=== PATIENT | female | born 1945 | race Caucasian/White ===

== ENCOUNTER 2018-10-24 12:42 | Emergency (ER) | payer OTHER ==
[~2018-10-24] VITALS: Ht 172.7 cm; Wt 90.7 kg
[~2018-10-24 12:42] MED LIST: CEFADROXIL500 MG PO; COZAAR100 MG; KETO10TA2 PO; NORVASC2.5 M1; PRINIVIL20 MG; SYNTHROID50 MCG; TOPROL XL25 M1; TRIPLE ANTIBIOT15 GM TP
== END 2018-10-24 19:32 | disposition home or self-care (01) ==
LOC: ER 12:42
DX: K29.60 Other gastritis without bleeding (principal); R10.13 Epigastric pain

== ENCOUNTER 2024-07-11 11:10 | Emergency (ER) | payer OTHER ==
[~2024-07-11] VITALS: Ht 152.4 cm; Wt 78.0 kg
[~2024-07-11 11:10] MED LIST changes: +ADULT LOW DOSE81 M1 PO; +AMLODIPINE-OLM1 EAC2 PO; +ANTIVERT25 M2 PO; +CILOSTAZOL100 MG PO; +LASIX20 MG PO; +LISINOPRIL30 MG PO; +MAXIMUM D3325 MCG PO; +PENTOXIFYLLINE400 MG PO; +SIMVASTATIN10 MG PO; +TIROSINT50 MCG PO; +TOPROL XL25 M1 PO
[2024-07-11] MEDS ORDERED: KETOROLAC TROMETHAMINE 60 MG VIAL IM STA (14:26)
[2024-07-11] MEDS ORDERED: IBU600 MG PO (18:22)
== END 2024-07-11 20:29 | disposition home or self-care (01) ==
LOC: ER 11:10
DX: M25.551 Pain in right hip (principal); I10 Essential (primary) hypertension
CPT/HCPCS: 73502; 96372; 99283; J1885

== ENCOUNTER 2025-03-27 23:01 | Emergency (ER) | payer OTHER ==
[~2025-03-27] VITALS: Ht 167.6 cm; Wt 70.3 kg
[~2025-03-27 23:01] MED LIST changes: +IBU600 MG PO
[2025-03-27 23:10] VITALS: BP 145/83; O2SAT 100
[2025-03-28] MEDS ORDERED: KETOROLAC TROMETHAMINE 60 MG VIAL IM STA (00:04)
[2025-03-28] MEDS ORDERED: TRIAMCINOLONE ACETONIDE 40 MG/ML VIAL IM STA (00:04)
[2025-03-28] MEDS ORDERED: TRIAMCINOLONE ACETONIDE 40 MG/ML VIAL ONE (00:05)
[2025-03-28] MEDS ORDERED: KETOROLAC TROMETHAMINE 60 MG VIAL IM ONE (00:05)
[2025-03-28] MEDS ORDERED: MELOXICAM15 MG PO (02:15)
== END 2025-03-28 02:31 ==
LOC: ER 23:01
DX: M25.551 Pain in right hip (principal); M25.561 Pain in right knee; I10 Essential (primary) hypertension; E03.9 Hypothyroidism, unspecified
CPT/HCPCS: 73502; 73560; 96372; 99284; J1885; J3301

== ENCOUNTER 2025-05-01 01:36 | Inpatient (IN) | payer OTHER ==
[~2025-05-01] VITALS: Ht 172.7 cm; Wt 59.0 kg
[~2025-05-01 01:36] MED LIST changes: +MELOXICAM15 MG PO
[2025-05-01 03:54] LABS: BASO % 0.1 % (0.1-1.2); EOS # 0.02 (0.04-0.54); EOS % 0.1 % (0.7-7.0); LYMPH # 0.78 (1.18-3.74); LYMPH % 4.2 % (19.3-53.1); MEAN PLATELET VOLUME 10.90 fl (9.4-12.4); MONO # 1.71 (0.24-0.82); MONO % 9.2 % (4.7-12.5); NEUT # 15.90 (1.56-6.13); NEUT % 85.8 % (34.0-71.1); RED CELL DISTRIBUTION WIDTH 14.6 % (11.6-14.4)
[2025-05-01 03:58] LABS: ERYTHROCYTE SEDIMENTATION RATE 62 mm/hr (0-30)
[2025-05-01 04:10] LABS: INR 0.99
[2025-05-01 04:21] LABS: ALT/SGPT 133.0 U/L (12-78); AST/SGOT 123.0 U/L (15-37); BILIRUBIN TOTAL 1.32 mg/dL (0.3-1.2); BUN CREA RATIO 16.0 (7.0-25.0); CREATININE SERUM 1.05 mg/dL (0.55-1.02); GFR 50.82; GLOBULINA 4.4 G/DL (2.4-3.5); GLUCOSE FASTING 130.0 mg/dL (65-100); OSMOLALITY SERUM 286.0 MOSM/KG (275-295)
[2025-05-01 04:27] LABS: COVID-19 AG NEGATIVE (NEGATIVE)
[2025-05-01] MEDS ORDERED: ONDANSETRON HCL 2 MG/ML VIAL IV STA (05:01)
[2025-05-01] MEDS ORDERED: FAMOTIDINE/PF 20 MG/2 ML VIAL IV STA (05:01)
[2025-05-01] MEDS ORDERED: 0.9 % SODIUM CHLORIDE 1,000 ML IV STA (05:01)
[2025-05-01] MEDS ORDERED: PIPERACILLIN/TAZOBACTAM SODIUM 3.375 GM VIAL IV ONE ×3 (05:12→16:35)
[2025-05-01 05:56] LABS: URINE APPEARANCE Cloudy; URINE BILIRRUBIN Negative (NEGATIVE); URINE BLOOD Large; URINE COLOR Yellow; URINE GLUCOSE Negative (NEGATIVE); URINE KETONE Trace (NEGATIVE); URINE LEUKOCYTE Large; URINE NITRATE Positive; URINE PROTEIN 30 (NEGATIVE); URINE UROBILINOGEN 0.2 E.U./dl
[2025-05-01 06:00] LABS: URINE CAST 2.83 uL (0.0-1.40); URINE EPITHELIAL CELLS 24.6 uL (0.0-38.8); URINE RBC 57.3 uL (0.0-20.8)
[2025-05-01] MEDS ORDERED: PIPERACILLIN/TAZOBACTAM SODIUM 3.375 GM in 0.9 % SODIUM CHLORIDE 100 ML IV SCH ×2 (06:00→15:16)
[2025-05-01 06:48] LABS: URINE BACTERIA > 9821.5 uL (0.0-1933)
[2025-05-01 06:49] LABS: URINE CRYSTALS FEW /HPF
[2025-05-01] MEDS ORDERED: ONDANSETRON HCL 2 MG/ML VIAL ONE (07:17)
[2025-05-01] MEDS ORDERED: FAMOTIDINE/PF 20 MG/2 ML VIAL ONE (07:17)
[2025-05-01] MEDS ORDERED: LEVALBUTEROL HCL 1.25 MG/3 ML SOLUTION IH SCH (09:23)
[2025-05-01] MEDS ORDERED: LEVALBUTEROL HCL 1.25 MG/3 ML SOLUTION IH ONE (11:13)
[2025-05-01] MEDS ORDERED: ACETAMINOPHEN 500 MG GEL..CAP PO SCH (15:17)
[2025-05-01] MEDS ORDERED: AMLODIPINE BESYLATE 5 MG TABLET PO SCH (15:17)
[2025-05-01] MEDS ORDERED: LISINOPRIL 10 MG TABLET PO SCH (15:18)
[2025-05-01] MEDS ORDERED: METOPROLOL SUCCINATE 25 MG TAB.SR.24H PO SCH (15:18)
[2025-05-01] MEDS ORDERED: LEVOTHYROXINE SODIUM 50 MCG TABLET PO SCH (15:21)
[2025-05-01] MEDS ORDERED: LEVALBUTEROL HCL 0.63 MG/3 ML SOLUTION IH ONE (16:02)
[2025-05-01] MEDS ORDERED: 0.9 % SODIUM CHLORIDE 1,000 ML IV SCH (16:45)
[2025-05-01 16:54] VITALS: BP 130/87
[2025-05-01] MEDS ORDERED: AMLODIPINE BESYLATE 2.5 MG TABLET PO SCH (17:00)
[2025-05-01] MEDS ORDERED: LISINOPRIL 20 MG TABLET PO SCH (17:00)
[2025-05-01] MEDS ORDERED: LEVALBUTEROL HCL 0.63 MG/3 ML SOLUTION IH SCH (17:00)
[2025-05-01 22:16] VITALS: BP 134/80
[2025-05-02 02:39] VITALS: BP 124/75; O2SAT 98
[2025-05-02] MEDS ORDERED: LEVOTHYROXINE SODIUM 50 MCG TABLET PO SCH (06:00)
[2025-05-02 07:10] LABS: BASO % 0.1 % (0.1-1.2); EOS # 0.05 (0.04-0.54); EOS % 0.3 % (0.7-7.0); LYMPH # 2.82 (1.18-3.74); LYMPH % 18.7 % (19.3-53.1); MEAN PLATELET VOLUME 10.70 fl (9.4-12.4); MONO # 2.04 (0.24-0.82); NEUT # 10.10 (1.56-6.13); NEUT % 66.8 % (34.0-71.1); RED CELL DISTRIBUTION WIDTH 14.7 % (11.6-14.4)
[2025-05-02 07:15] LABS: MONO % 13.5 % (4.7-12.5)
[2025-05-02 07:17] LABS: ERYTHROCYTE SEDIMENTATION RATE 74 mm/hr (0-30)
[2025-05-02 08:31] LABS: BUN CREA RATIO 10.0 (7.0-25.0); CREATININE SERUM 0.9 mg/dL (0.55-1.02); GFR 60.71; GLUCOSE FASTING 98.0 mg/dL (65-100); OSMOLALITY SERUM 284.0 MOSM/KG (275-295)
[2025-05-02 10:03] VITALS: BP 135/84; O2SAT 97
[2025-05-02] MEDS ORDERED: CEFTRIAXONE SODIUM 2,000 MG VIAL IV NR (14:00)
[2025-05-02 18:40] VITALS: BP 123/84
[2025-05-03 01:37] VITALS: BP 135/73; O2SAT 97
[2025-05-03 07:33] LABS: BASO % 0.1 % (0.1-1.2); EOS # 0.27 (0.04-0.54); EOS % 2.2 % (0.7-7.0); LYMPH # 2.57 (1.18-3.74); LYMPH % 20.9 % (19.3-53.1); MEAN PLATELET VOLUME 10.20 fl (9.4-12.4); MONO # 1.41 (0.24-0.82); MONO % 11.5 % (4.7-12.5); NEUT # 7.97 (1.56-6.13); NEUT % 64.8 % (34.0-71.1); RED CELL DISTRIBUTION WIDTH 14.9 % (11.6-14.4)
[2025-05-03 08:38] LABS: ALT/SGPT 152.0 U/L (12-78); AST/SGOT 110.0 U/L (15-37); BILIRUBIN TOTAL 0.26 mg/dL (0.3-1.2); BUN CREA RATIO 14.0 (7.0-25.0); CREATININE SERUM 0.8 mg/dL (0.55-1.02); GFR 69.55; GLOBULINA 3.6 G/DL (2.4-3.5); GLUCOSE FASTING 108.0 mg/dL (65-100); OSMOLALITY SERUM 289.0 MOSM/KG (275-295)
[2025-05-03] MEDS ORDERED: CEFTRIAXONE SODIUM 2,000 MG VIAL IV SCH (09:00)
[2025-05-03 09:43] VITALS: BP 138/82; O2SAT 97
[2025-05-03 19:03] VITALS: BP 120/80
[2025-05-04 01:27] VITALS: BP 151/91; O2SAT 95
[2025-05-04 10:32] VITALS: BP 93/55; O2SAT 97
[2025-05-04] MEDS ORDERED: MAGNESIUM HYDROXIDE 30 ML BLIST.PACK PO SCH (12:00)
[2025-05-04] MEDS ORDERED: MINERAL OIL 30 ML BLIST.PACK PO SCH (12:00)
[2025-05-04] MEDS ORDERED: LACTULOSE 20 G/30 ML BLIST.PACK PO SCH (12:00)
[2025-05-04 18:24] VITALS: BP 125/80; O2SAT 96
[2025-05-05 02:33] VITALS: BP 132/78; O2SAT 95
[2025-05-05 07:17] LABS: BASO % 0.1 % (0.1-1.2); EOS # 0.37 (0.04-0.54); EOS % 3.2 % (0.7-7.0); LYMPH # 2.86 (1.18-3.74); LYMPH % 24.4 % (19.3-53.1); MEAN PLATELET VOLUME 10.20 fl (9.4-12.4); MONO # 1.08 (0.24-0.82); MONO % 9.2 % (4.7-12.5); NEUT # 7.34 (1.56-6.13); NEUT % 62.4 % (34.0-71.1); RED CELL DISTRIBUTION WIDTH 15.6 % (11.6-14.4)
[2025-05-05 07:50] LABS: ALT/SGPT 138.0 U/L (12-78); AST/SGOT 60.0 U/L (15-37); BILIRUBIN TOTAL 0.28 mg/dL (0.3-1.2); BUN CREA RATIO 12.0 (7.0-25.0); CREATININE SERUM 0.6 mg/dL (0.55-1.02); GFR 96.94; GLOBULINA 3.5 G/DL (2.4-3.5); GLUCOSE FASTING 96.0 mg/dL (65-100); OSMOLALITY SERUM 288.0 MOSM/KG (275-295)
[2025-05-05 09:41] VITALS: BP 164/82; O2SAT 97
[2025-05-05] MEDS ORDERED: RINGERS SOLUTION,LACTATED 1,000 ML IV SCH (10:30)
[2025-05-05 13:32] LABS: URINE APPEARANCE Clear; URINE BILIRRUBIN Negative (NEGATIVE); URINE BLOOD Moderate; URINE COLOR Yellow; URINE GLUCOSE Negative (NEGATIVE); URINE KETONE Negative (NEGATIVE); URINE LEUKOCYTE Trace; URINE NITRATE Negative; URINE PROTEIN Negative (NEGATIVE); URINE UROBILINOGEN 0.2 E.U./dl
[2025-05-05 13:35] LABS: URINE BACTERIA 45.7 uL (0.0-1933); URINE EPITHELIAL CELLS 2.7 uL (0.0-38.8); URINE RBC 72.3 uL (0.0-20.8); URINE WBC 20.6 uL (0.0-23.2)
[2025-05-05 13:38] LABS: URINE CAST 0.00 uL (0.0-1.40)
[2025-05-05 19:28] VITALS: BP 125/67
[2025-05-06 01:10] VITALS: BP 137/81; O2SAT 96
[2025-05-06 10:05] VITALS: BP 170/80; O2SAT 95
[2025-05-06] MEDS ORDERED: RINGERS SOLUTION,LACTATED 1,000 ML IV SCH (14:00)
[2025-05-06 19:57] VITALS: BP 140/84
[2025-05-07 02:55] VITALS: BP 140/70; O2SAT 95
[2025-05-07 08:00] VITALS: BP 133/79
[2025-05-07] MEDS ORDERED: HYDROCODONE/CHLORPHEN P-STIREX 5 ML ML PO SCH (09:00)
[2025-05-07] MEDS ORDERED: LEVALBUTER0.63 MG/3 IH (17:19)
[2025-05-07] MEDS ORDERED: CEFDINIR300 MG PO (17:20)
[2025-05-07] MEDS ORDERED: ROBITUSSIN COU118 M5 PO (17:21)
[2025-05-08] MEDS ORDERED: OSEL75CA PO (06:15)
[2025-05-08 10:07] LABS: CA 125 4.6 U/mL (0.0-38.1); CA 15-3 12.0 U/mL (0.0-25.0)
== END 2025-05-07 18:39 | disposition home or self-care (01) | DRG 690 ==
LOC: ER 01:37 → SEC-K 16:04 → MEDJ 16:04
PROVIDERS: General Practice; Internal Medicine; Internal Medicine Infectious Disease; Physician Assistant Medical; ADMIT Internal Medicine; ATTEND Internal Medicine
PROC: BW28ZZZ Computerized Tomography (CT Scan) of Head (ICD-10-PCS; principal; 2025-05-01)
PROC: BW21YZZ Computerized Tomography (CT Scan) of Abdomen and Pelvis using Other Contrast (ICD-10-PCS; 2025-05-01)
PROC: 3E0F7GC Introduction of Other Therapeutic Substance into Respiratory Tract, Via Natural or Artificial Opening (ICD-10-PCS; 2025-05-02)
PROC: B246ZZZ Ultrasonography of Right and Left Heart (ICD-10-PCS; 2025-05-04)
DX: N39.0 Urinary tract infection, site not specified (principal); R78.81 Bacteremia; E87.6 Hypokalemia; B96.29 Other Escherichia coli [E. coli] as the cause of diseases classified elsewhere; D72.828 Other elevated white blood cell count; R74.01 Elevation of levels of liver transaminase levels; I10 Essential (primary) hypertension; R79.82 Elevated C-reactive protein (CRP)